=== PATIENT | male | born 2000 | race African-American/Black ===

== ENCOUNTER 2020-02-09 17:29 | Emergency (ER) | payer OTHER ==
[2020-02-09 17:42] VITALS: BP 100/57; PULSE 109; TEMP 99.2; BMI 21.2
--- NOTE | 2020-02-09 19:02 | PDOC ---
History of Present Illness - General Stated Complaint: AMS Time Seen by Provider: 02/09/20 18:24 History Source: Patient Exam Limitations: No Limitations - History of Present Illness Initial Comments: 02/09/20 19:11 Patient is a 19-year-old nonverbal male with a history of autism who presents to the ED with his mother after leaving the house unannounced for about 1.5 hours earlier today. She states that at one point the child left the house without anyone's knowledge. Mother went outside to look for the patient and she was unable to find him. She called 911 and the child was later found about a mile away. He was walking barefoot in the streets. The child has not taken his medications for the last 2 days secondary to circumstances between the mother and the father's houses. We will the child is on Risperdal daily and clonidine at night. Mother states that the child appears slightly sleepy and just wanted the patient to be evaluated. Past History - Medical History Allergies/Adverse Reactions: Allergies Allergy/AdvReac Type Severity Reaction Status Date / Time No Known Allergies Allergy Verified 02/09/20 17:42 COPD: No Other medical history: AUTISTIC - Psycho-Social/Smoking History Smoking History: Never smoked Have you smoked in the past 12 months: No Information on smoking cessation initiated: No - Substance Abuse Hx (Audit-C & DAST Scrn) How often the patient has a drink containing alcohol: Never Score: In Men: 4 or > Positive; In Women: 3 or > Positive: 0 Screen Result (Pos requires Nsg. Audit-10AR): Negative In the last yr the pt used illegal drug/Rx for NonMed reason: No Score: Yes response is considered Positive: 0 Screen Result (Positive result requires Nsg. DAST-10): Negative Review of Systems - Review of Systems Comments:: 02/09/20 19:22 - Review of Systems Able to Perform ROS?: Yes Constitutional: No: Fever, Chills, Loss of Appetite, Night Sweats, Weakness; wellness check after being a missing persons for 1 hour HEENTM: No: Eye Pain, Vision changes, Ear Pain, Throat Pain, Throat Swelling, Mouth Pain, Difficulty Swallowing Respiratory: No: Cough, Shortness of Breath, Wheezing, Sputum Production Cardiac (ROS): No: Chest Pain, Chest Tightness, Palpitations, Irregular Heart Beat, Edema ABD/GI: No: Nausea, Vomiting, Abdominal Pain, Diarrhea : No Dysuria, No Hematuria, No Frequency, No Urgency Musculoskeletal: No: Muscle Pain, Back Pain, Joint Pain, Muscle Weakness, Neck Pain Integumentary: No: Lesions, Rash; abrasion to right foot Neurological: No: Headache, Numbness, Tingling, Weakness, Speech Difficulties *Physical Exam - Vital Signs Last Vital Signs Temp Pulse Resp BP Pulse Ox 99.2 F 109 H 18 100/57 L 97 02/09/20 17:38 02/09/20 17:38 02/09/20 17:38 02/09/20 17:38 02/09/20 17:38 - Physical Exam 02/09/20 19:23 - Physical Exam General Appearance: Nourished, Appropriately Dressed, No Distress HEENT: EOMI, Normal Voice, No Pharyngeal Erythema, No Muffled/Hoarse voice, No Tonsillar Exudate, No Tonsillar Erythema, No Nasal Congestion, No Rhinorrhea, Hearing Grossly Normal, TMs Normal, No TM Bulging, No TM Dullness, No TM Erythema Neck: Supple, No Lymphadenopathy (R), No Lymphadenopathy (L), No Rigidity, No Decreased range of motion Respiratory/Chest: Lungs Clear, Normal Breath Sounds. No Respiratory Distress, No Accessory Muscle Use Cardiovascular: Regular Rhythm, Regular Rate, S1, S2 Gastrointestinal/Abdominal: Normal Bowel Sounds, Soft. Non-tender, No Guarding, No Rebound, No Rigidity Musculoskeletal: Normal Inspection. No Decreased Range of Motion Extremity: Normal Capillary Refill, Normal Inspection Integumentary: Normal Color, Dry. Abrasion to the right second toe appreciated. No sign of foreign body. Neurologic: performance test engineer II-XII NML intact, Alert, Normal Mood/Affect, Normal Response; patient following commands appropriately. Patient is nonverbal Medical Decision Making - Medical Decision Making 02/09/20 18:57 Assessment: Patient is a 19-year-old male with autism who presents to the ED for evaluation after leaving the house unannounced and wandering the streets for about 1.5 hours. Mother brought him to the ED for a general evaluation. Plan: -Urine tox sent -UA, urine culture sent -TDAP UTD -Mother states that she prefers not to have blood work done at this time because it is unlikely that the patient got into Tylenol, aspirin or alcohol. The child is not smelling like alcohol so mother prefers not to have blood work done at this time. -Blood glucose ordered but mother states that it was done by EMS and it was 177 mg/dL. She prefers to not have another BGM test. -I have made mother aware that I will call her with the results of the urine tox if positive only. She states she will start her child back on his medications tonight. She understands and agrees with this treatment plan and the patient stable for discharge. 02/09/20 20:51 Laboratory Tests 02/09/20 02/09/20 18:54 18:54 Urine Color Yellow Urine Appearance Clear Urine pH 5.5 Ur Specific [place] 1.033 Urine Protein Negative Urine Glucose (UA) Negative Urine Ketones Trace H Urine Blood Negative Urine Nitrite Negative Urine Bilirubin Negative Urine Urobilinogen 0.2 Ur Leukocyte Esterase Negative Opiates Screen Negative Methadone Screen Negative Barbiturate Screen Negative Phencyclidine Screen Negative Ur Amphetamines Screen Negative MDMA (Ecstasy) Screen Negative Benzodiazepines Screen Negative Cocaine Screen Negative U Marijuana (THC) Screen Positive A* Mother made aware that the pt was positive for THC which is consistent with the pt being tired. Mother states that she will talk to the pt's father to determine where the pt got the marijuana from. Discharge - Discharge Information Problems reviewed: Yes Clinical Impression/Diagnosis: Encounter for routine adult health examination without abnormal findings Condition: Stable Disposition: HOME - Follow up/Referral - Patient Discharge Instructions Additional Instructions: The patient's exam was within normal limits and there are no concerning findings at this time. You will get a call regarding the patient's toxicology screen if there are any positive findings only. Allow the child to get plenty of rest and drink plenty of fluids. Give the child's normal medications as previously prescribed. Return to the emergency department for any concerning symptoms. - Post Discharge Activity
[2020-02-09 19:38] LABS: PH,URINE 5.5 (5.0-8.0); URINE APPEARANCE CLEAR; URINE BILIRUBIN NEGATIVE (NEGATIVE); URINE COLOR YELLOW; URINE GLUCOSE (UA) NEGATIVE (NEGATIVE); URINE KETONE TRACE (NEGATIVE); URINE LEUK ESTERASE NEGATIVE (NEGATIVE); URINE NITRITE NEGATIVE (NEGATIVE); URINE PROTEIN NEGATIVE (NEGATIVE); URINE UROBILINOGEN 0.2 mg/dL (0.2-1.0)
[2020-02-09 20:14] LABS: COCAINE, UR NEGATIVE ng/ml (CUTOFF=300); OPIATES, URI NEGATIVE ng/ml (CUTOFF=300); PHENCYCLIDINE,URINE NEGATIVE ng/ml (CUTOFF=25); URINE BARBITURATES NEGATIVE ng/ml (CUTOFF=200)
[2020-02-09 20:18] LABS: METHADONE, UR NEGATIVE ng/ml (CUTOFF=300); URINE AMPHETAMINES NEGATIVE ng/ml (CUTOFF=500); URINE BENZODIAZEPINES NEGATIVE ng/ml (CUTOFF=200)
== END 2020-02-09 19:02 | disposition home or self-care (01) ==
LOC: JERFT 17:29
DX: Z00.00 Encounter for general adult medical examination without abnormal findings (principal)
CPT/HCPCS: 80307; 81003; 87086; 99281-25